=== PATIENT | female | born 1985 | race Caucasian/White ===

== ENCOUNTER → 2016-09-01 | Outpatient (CLI) | payer BC ==
--- NOTE | 2016-09-01 14:14 | US ---
Formerly [facility] Providers, Thank you for sending your patient, Johnny Allen, to us for a follow-up US to assess interval g rowth and position given concern for breech presentation. As you know, the patient is a 30 y.o. G1, P0 at 36 weeks and 3 days with an EDC of 09/26/16 based on LMP and 19 week US. Her has been uncomplicated to date. Genetic Screening: NIPT reassuring The patient denies any uterine contractions, vaginal bleeding, or loss of fluid. She reports excellen t movement. Today, she is without complaints. US FINDINGS: Number of fetuses: 1 Placental location: Anterior, no previa presentation: NICOLE BREECH Cervix: Suboptimal MVP: 5.0 cm Measurements: Biparietal diameter: 89 mm, 36 weeks 1 days Head circumference: 330 mm, 37 weeks 5 days Abdominal circumference: 325 mm, 36 weeks 4 days Femur length: 69 mm, 35 weeks 4 days Humerus length: 60 mm, 35 weeks 1 days Transcerebellar diameter: 53 mm, 37 weeks 4 days Cerebral Lateral Ventricle: 5 mm Cisterna Magna: Suboptimal Heart Rate: 124 bpm Average ultrasound age: 36 weeks 4 days Estimated weight: 2905 g weight percentile: 50% Anatomy: anatomy was previously assessed. Today the following structures were visualized and appeared n ormal: lateral ventricles, stomach, kidneys, and bladder. IMPRESSION: 1. Growth: The fetus measures appropriate for gestational age, measuring at a normal weight and perc entile. Visualization of the fetus today reveals no overt structural anomalies. There is evidence of normal amniotic fluid, and movement was seen during the examination. 2. Breech Presentation: Today, the fetus is in a nicole breech position. We discussed the option of ex ternal cephalic version at [facility]. We also discussed alternative methods including chiro practic care and acupuncture. Unfortunately, the patient has tried alternative methods without succes s over the past week. She has been scheduled for ECV on 09/07/2016 @ 0800 at [facility]. We briefly r eviewed the procedure and the risk of emergency delivery. We also discussed the need for IV placement during the procedure in the event that emergency surgery is required. Lastly, we discussed the option of Nitrous Oxide for pain and anxiety control during the procedure. All OB records and thi s report have been faxed to [facility]. Thank you again for sending this patient to see us today. Approximately 15 minutes were spent with th is patient today with 12 minutes of this time spent in direct face to face counseling regarding today 's US findings and our recommendations. Please contact me with any questions at . Nani Canales MD Maternal- Medicine
--- NOTE | 2016-09-01 18:17 | US ---
Ultrasound Obstetric limited Indication: Breech presentation. The estimated gestational age by LMP is 36 weeks and 3 days yieldi ng an EDC of September 26, 2016. Comparison: April 2016. Findings: Number: 1 Presentation: Breech Placental location: Anterior without previa Cervix: Suboptimal. Amniotic MVP: 5 cm Biometry: Biparietal diameter: 89.15 mm 36 weeks, 1 days Head circumference: 330.38 mm 37 weeks, 5 days Abdominal circumference: 325.48 mm 36 weeks, 4 days Femur length: 69.29 mm 35 weeks, 4 days Humerus length: 60.35 mm 35 weeks, 1 days Transcerebellar diameter: 52.75mm 37 weeks, 4 days HC/AC: 1.02 ( 0.9-1.11 ) FL/BPD: 78% FL/AC: 21% Average ultrasound age: 36 weeks, 4 days EDC based on today's average ultrasound age: September 25, 2016 Estimated weight is 2905 gms +/- 424 gms. The estimated weight is at the 50 % based on pr evious dating. ANATOMY : Previous evaluated. FHR 124 bpm. Today's limited anatomy demonstrates lateral ventricles, stomach, kidneys and bladder vi sualized. Impression: 1. Living harris in Breech presentation. 2. Size concordant with dates. 3. Please see Dr. Nani Canales's consult and recommendations.
== END ==
LOC: FIMAGING 11:40
PROVIDERS: ATTEND Advanced Practice Midwife
DX: O32.1XX1 Maternal care for breech presentation, fetus 1 (principal); Z3A.36 36 weeks gestation of pregnancy

== ENCOUNTER 2016-09-23 05:34 | Inpatient (IN) | payer BC ==
--- NOTE | 2016-09-22 08:36 | GHP ---
[f rep st] HISTORY AND PHYSICAL Amended report DATE OF ADMISSION: 09/23/2016 ADMITTING DIAGNOSES: 1. Intrauterine at 39 and 4 days 2. Malpresentation, breech. HISTORY OF PRESENT ILLNESS: Patient is a 31-year-old, 1, para 0, with LMP 12/18/2015, at 39 weeks and 4 days with an estimated due date 09/26/2016. This is consistent with an ultrasound done at 9 weeks. Patient presented to the office 09/10 and is a transfer from the Center. is uncomplicated per patient except when they found out baby was breech on ultrasound done 09/01/16 confirming breech with anterior placenta. Estimated weight 2905 g, 50th percentile. Maximum vertical pocket of 5 cm. The patient was scheduled for an external version on 09/07/16 and it was unsuccessful , so patient presents today to discuss a . Denies any leakage of fluid or vaginal bleeding. Denies any contractions. Good movement noted. Patient did have good care at the Center, and presented early in the first trimester. course mostly uncomplicated. She had UTI early in the first trimester, was treated with Macrobid with a negative test of cure. 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 Denies any cold sores or genital lesions. Patient did receive Tdap in the office today. Declines flu vaccine. GBS is positive. OBSTETRICAL HISTORY: Primiparous. PAST IRS AGENT HISTORY: Age of menarche 10. Cycles are regular every 28 days times 5 -7 days. Denies any history of abnormal Pap smears. Pap smear and chlamydia, gonorrhea cultures are negative in this . PAST MEDICAL HISTORY: HSV type 1. PAST SURGICAL HISTORY: Unremarkable. FAMILY HISTORY: Unremarkable. SOCIAL HISTORY: Patient is , lives with her Will. Denies any alcohol, tobacco or illicit drug use during the . ALLERGIES: No known drug allergies. MEDICATIONS: vitamins, Probiotics, magnesium. LABS: She is AB positive, antibody negative, rubella immune, HIV negative, RPR nonreactive, hepatitis B surface antigen negative. Genetic testing, Progenity is negative, Trio negative. GC and chlamydia cultures are negative. H and H are 14 and 41. TSH 2.6. GBS is positive. PHYSICAL EXAMINATION: VITAL SIGNS: On admission, vital signs stable. Patient is afebrile. GENERAL: Well-nourished well-developed 31-year-old female, alert and oriented x3. No apparent distress. HEART: Regular rate and rhythm. LUNGS : Clear to auscultation. ABDOMEN: Gravid. Nontender. Nondistended. Soft. Normoactive bowel sounds. PELVIC: Deferred. EXTREMITIES: Normal to inspection without calf tenderness or swelling. ASSESSMENT: This is a 31-year-old, 1, para 0, at 39 and 4/7 weeks with an RIA 09/26/2016, presenting as a transfer of care from the Center with malpresentation, breech. PLAN: 1. Surgical consents were obtained in the office. Risks, benefits and alternatives were reviewed with the patient including but not limited to, bleeding, infection, damage to surrounding organs. Pt understands all risks and wants to proceed with surgery, . 2. Will order on-call antibiotics prior to the incision. 3. Patient requests ultrasound to be done prior to the to confirm breech presentation. /[id number]/MODL Add acc#, 09/23/16, domitila PAREDES
[2016-09-23] MEDS ORDERED: CITRIC ACID/SODIUM CITRATE 30 ML UDCUP PO ONE (05:54)
[2016-09-23] MEDS ORDERED: LR 500 ML IV ONE (05:54)
[2016-09-23] MEDS ORDERED: ceFAZolin 2 GM/DEXTROSE 100 ML IV ONE (05:54)
[2016-09-23] MEDS ORDERED: LR 1,000 ML IV SCH (06:00)
[2016-09-23 06:54] LABS: % IMMATURE GRANULYOCYTES 0.3 % (0.0-1.1); ABSOLUTE IMMATURE GRANULOCYTES 0.03 10^3/uL (0.00-0.10); ADD DIFF? NO; ADD MORPH? NO; ADD SCAN? NO; ATYPICAL LYMPHOCYTE FLAG 0 (0-99); FRAGMENT RBC FLAG 0 (0-99); HEMATOCRIT 43.5 % (38.0-47.0); HEMOGLOBIN 15.2 g/dL (12.6-16.3); LEFT SHIFT FLG 0 (0-99); LIPEMIA HEMOLYSIS FLAG 90 (0-99); MEAN CELL HEMOGLOBIN 29.1 pg (27.9-34.1); MEAN CELL HEMOGLOBIN CONCENTR. 34.9 g/dL (32.4-36.7); MEAN CELL VOLUME 83.3 fL (81.5-99.8); MEAN PLATELET VOLUME 9.6 fL (8.7-11.7); PLATELET CLUMPS FLAG 0 (0-99); PLATELET COUNT 280 10^3/uL (150-400); RED BLOOD CELL COUNT 5.22 10^6/uL (4.18-5.33); RED CELL DISTRIBUTION WIDTH 12.4 % (11.5-15.2)
[2016-09-23] MEDS ORDERED: fentaNYL 100 MCG/2 ML INJ ONE (06:58)
[2016-09-23] MEDS ORDERED: morphINE PF 5 MG/10 ML INJ ONE (06:59)
[2016-09-23] MEDS ORDERED: fentaNYL 100 MCG/2 ML INJ IVP PRN (07:31)
[2016-09-23] MEDS ORDERED: PHENYLEPHRINE HCL 100 MCG/ML SYR IVP PRN (07:31)
[2016-09-23] MEDS ORDERED: NALOXONE HCL 0.4 MG/ML INJ IVP PRN (07:31)
[2016-09-23] MEDS ORDERED: METOCLOPRAMIDE 10 MG/2 ML VIAL IVP PRN (07:31)
[2016-09-23] MEDS ORDERED: MEPERIDINE 25 MG/ML SYR IVP PRN (07:31)
[2016-09-23] MEDS ORDERED: ONDANSETRON 4 MG/2 ML VIAL IVP PRN (07:31)
[2016-09-23] MEDS ORDERED: PHENYLEPHRINE HCL 100 MCG/ML SYR ONE (07:45)
[2016-09-23] MEDS ORDERED: OXYTOCIN 100 UNITS/10 ML VIAL ONE (08:06)
[2016-09-23] MEDS ORDERED: MAGNESIUM HYDROXIDE 30 ML UDCUP PO PRN (08:40)
[2016-09-23] MEDS ORDERED: BISACODYL 10 MG SUPP PR PRN (08:40)
[2016-09-23] MEDS ORDERED: LACTULOSE 20 GM/30 ML UDCUP PO PRN (08:40)
[2016-09-23] MEDS ORDERED: POLYETHYLENE GLYCOL 3350 17 GM PKT PO PRN (08:40)
--- NOTE | 2016-09-23 08:46 | OBPROC ---
- Delivery Pre-op Diagnoses: Malpresentation - breech Post-op Diagnoses: Malpresentation - nicole breech Procedure: Primary Surgeon: Alison Velez Transit Operations Supervisor: Stephanie Dang Anesthesiologist: Kari Corey Rehabilitation Aide/FINISH OPENER: Leticia Mallory Anesthesia: Spinal Complications: None Findings: Grossly normal appearing uterus, tubes and ovaries b/l. IV Fluid (ml): 2,500 EBL: 800 UO - 300 cc clear urine - Info Infant A Delivery Date: 09/23/16 Delivery Time: 08:05 Sex of Infant: Female Score (1 Min): 9 Score (5 Min): 9
[2016-09-23] MEDS: KETOROLAC 30 MG/1 ML SDV IVP SCH ×4 (11:19→23:14)
--- NOTE | 2016-09-23 12:08 | GOP ---
[f rep st] OPERATIVE REPORT DATE OF OPERATION: 09/23/2016 SURGEON: Alison Velez DO SPECIAL EDUCATION [employer] TEACHER: Stephanie Dang DO ANESTHESIA: Spinal. PREOPERATIVE DIAGNOSIS: 1. Intrauterine at 39 weeks and 4 days. 2. Malpresentation, breech. POSTOPERATIVE DIAGNOSIS: 1. Intrauterine at 39 weeks and 4 days. 2. Malpresentation, breech. PROCEDURE PERFORMED: Primary low transverse section. FINDINGS: Grossly normal-appearing uterus, tubes and ovaries bilaterally. SPECIMENS: None. ESTIMATED BLOOD LOSS: 800 cc. COMPLICATIONS: None. IV FLUIDS: 2500 cc LR. URINE OUTPUT: 300 cc of clear urine at the end of the procedure. INDICATIONS: Patient is a 31-year-old, 1, para 0, at 39 weeks and 4 days who presents as a transfer of care from the [facility] with failed version at 38 weeks and malpresentation, breech. DESCRIPTION OF PROCEDURE: The patient was taken to the operating room where spinal anesthesia was obtained. The patient was prepped and draped in the usual sterile fashion and placed in the supine position with a tilt. A skin incision was then made with a knife and extended to the fascia with the Bovie. The fascia was then nicked and extended bilaterally with Del Valle scissors. The fascia was then dissected off the rectus muscle bluntly and in the midline. Peritoneum was elevated with hemostats, entered bluntly and extended bilaterally. The bladder blade was placed. The visceral peritoneum was then entered with the Metzenbaum scissors. Bladder flap created using both sharp and blunt dissection. Bladder blade was advanced. The uterus was incised with the knife in a horizontal fashion. Lower uterine segment extended anterior and posteriorly. The baby was then delivered in the nicole breech presentation without difficulty. Delayed cord clamping occurred. The cord was then clamped and ligated. Baby was then handed off to the nurse practitioner. It was a baby girl. Apgars were 9 and 9. The placenta was then delivered spontaneously intact. Uterus was unable to be exteriorized. The cavity was cleaned with moist sponges. The uterine incision was then closed with a running stitch of 0 Vicryl. Hemostasis was noted. A 2nd imbricating layer was then closed with 0 Vicryl stitch. Again hemostasis was noted. The gutters were then cleansed of free blood and clots. The ovaries and tubes were visualized and appeared grossly normal appearing. The incision was visualized again and there was hemostasis noted. The rectus muscles were then approximated using 2-0 Vicryl. The fascia was then closed with 0 Vicryl running suture. Hemostasis was noted. The skin incision was then closed using a 4-0 Vicryl on a Darwin needle. Patient tolerated the procedure well. No complications. Sponge, lap and instrument counts were correct x2. The patient did receive 2 g of Ancef prior to the incision. The patient was then taken out of supine position and taken to the recovery room in stable condition. /[id number]/MODL MTDD
[2016-09-23] MEDS: DOCUSATE SODIUM 100 MG CAP PO PRN (23:14)
[2016-09-24] MEDS: HYDROCODONE/APAP 5/325 TAB PO PRN ×5 (03:45→21:32)
[2016-09-24] MEDS: IBUPROFEN 600 MG TAB PO PRN ×3 (05:54→19:09)
[2016-09-24] MEDS: SENNOSIDES/DOCUSATE SODIUM TAB PO SCH ×4 (07:08→23:13)
--- NOTE | 2016-09-24 09:57 | OBPROG ---
OBG Progress Note Assessment/Plan: Assessment: s/p PCS secondary to breech POD # 1 - pt is stable Plan: Continue routine pp care Dressing to be removed this am Pt may shower Encourage ambulation and IS Plan for d/c home in 48 hrs 09/24/16 09:54 Subjective: Pt seen and examined. Doing well, no complaints. Pain is well controlled. She is OOB, maryam diet, voiding, no flatus yet. Denies any f/c/n/v/CP or SOB. Minimal lochia. Some difficulty with and baby girl latching. Objective: 09/23/16 06:15 Patient ABO/Rh AB POSITIVE 09/23/16 06:15 Temp Pulse Resp BP Pulse Ox 37.0 C 61 94 H 103/70 95 09/24/16 08:00 09/24/16 05:30 09/24/16 05:30 09/24/16 08:00 09/24/16 08:00 Uterine Position/Fundal Height: Umbilicus -1 Uterine Tone: Firm - Physical Exam General Appearance: WD/WN, alert, no apparent distress Respiratory: lungs clear, normal breath sounds Cardiac/Chest: regular rate, rhythm Abdomen: normal bowel sounds, soft, flatus (none yet), incision (C/D/I), dressing (intact, dry) Genitourinary: lochia (minimal) Extremities: non-tender, normal inspection Neuro/Psych: alert, normal mood/affect, oriented x 3 ICD10 Worksheet Patient Problems: Problems Problem Status Diagnosed Breech extraction, delivered Acute Status post primary low transverse section Acute - ICD10 Problem Qualifiers (1) Status post primary low transverse section (2) Breech extraction, delivered
--- NOTE | 2016-09-24 16:57 | SOAPPROG ---
SOAP Progress Note Assessment/Plan: Assessment: POD #1 s/p C/S for breech presentation performed under SAB. Intrathecal morphine was given for extended POPC. Pt. doing very well. Plan: Continue current medical mgmt. 09/24/16 16:55 Subjective: Pt. denies N/V, pruritus, back pain, numbness/weakness, urinary retention. Objective: Vital Signs Temp Pulse Resp BP Pulse Ox 37.4 C 79 16 98/57 L 93 09/24/16 15:00 09/24/16 15:00 09/24/16 15:00 09/24/16 15:00 09/24/16 15:00 Laboratory Results 09/23/16 06:15 09/23/16 09/24/16 09/25/16 05:59 05:59 05:59 Intake Total 2500 Output Total 4200 Balance -1700 Physical Exam - Physical Exam General Appearance: WD/WN, alert, no apparent distress Neuro/Psych: no motor/sensory deficits, alert, normal mood/affect ICD10 Worksheet Patient Problems: Problems Problem Status Diagnosed Breech extraction, delivered Acute Status post primary low transverse section Acute
[2016-09-25] MEDS: IBUPROFEN 600 MG TAB PO PRN ×4 (01:26→19:58)
[2016-09-25] MEDS: HYDROCODONE/APAP 5/325 TAB PO PRN ×6 (01:27→23:53)
[2016-09-25] MEDS: SENNOSIDES/DOCUSATE SODIUM TAB PO SCH ×2 (08:11→19:57)
--- NOTE | 2016-09-25 14:14 | SOAPPROG ---
SOAP Progress Note Assessment/Plan: Assessment: POD 2 s/p primary C/S for breech Plan: routine care 09/25/16 14:11 Subjective: Pt doing great. Pain under good control with [place]/ibu. Baby is latching well and has good colostrum. Bld has decreased. urinating fine. Amb well. Mild tape rxn but not painful - no blisters. Objective: Vital Signs Temp Pulse Resp BP Pulse Ox 36.9 C 84 16 103/68 94 09/25/16 08:05 09/25/16 08:05 09/25/16 08:05 09/25/16 08:05 09/25/16 08:05 Laboratory Results 09/23/16 06:15 09/24/16 09/25/16 09/26/16 05:59 05:59 05:59 Intake Total 2500 2200 Output Total 4200 1250 Balance -1700 950 Physical Exam - Physical Exam General Appearance: WD/WN Abdomen: non-tender (approp post op tenderness), soft, other (incision CDI, FF at umb ) Pelvic Exam: vaginal bleeding (normal lochia) Extremities: non-tender, pedal edema (mild) Neuro/Psych: normal mood/affect ICD10 Worksheet Patient Problems: Problems Problem Status Diagnosed Breech extraction, delivered Acute Status post primary low transverse section Acute
[2016-09-25] MEDS: DOCUSATE SODIUM 100 MG CAP PO PRN (19:57)
[2016-09-26] MEDS: IBUPROFEN 600 MG TAB PO PRN ×2 (02:04→09:03)
[2016-09-26] MEDS: HYDROCODONE/APAP 5/325 TAB PO PRN ×3 (04:07→13:55)
[2016-09-26 08:08] VITALS: BP 118/83; PULSE 72; RESP 17; TEMP 97.4; O2SAT 95
[2016-09-26] MEDS: SENNOSIDES/DOCUSATE SODIUM TAB PO SCH (09:02)
--- NOTE | 2016-09-26 11:46 | SOAPPROG ---
SOAP Progress Note Assessment/Plan: Assessment: POD 3 s/p primary C/S for breech Plan: routine care, pt desires d/c home 09/25/16 14:11 09/26/16 11:43 Subjective: Pt doing well. Desires D/C. Pain well controlled with [place]/ibu. Baby BF well. Bld is light. urinating fine. Amb well. Objective: Vital Signs Temp Pulse Resp BP Pulse Ox 36.3 C 72 17 118/83 H 95 09/26/16 07:40 09/26/16 07:40 09/26/16 07:40 09/26/16 07:40 09/26/16 07:40 Laboratory Results 09/23/16 06:15 09/25/16 09/26/16 09/27/16 05:59 05:59 05:59 Intake Total 2200 Output Total 1250 Balance 950 Physical Exam - Physical Exam General Appearance: WD/WN Abdomen: non-tender (approp post op tenderness), soft, other (incision CDI, FF at umb -1) Pelvic Exam: vaginal bleeding (normal lochia) Extremities: non-tender, pedal edema Neuro/Psych: normal mood/affect ICD10 Worksheet Patient Problems: Problems Problem Status Diagnosed Breech extraction, delivered Acute Status post primary low transverse section Acute
== END 2016-09-26 14:30 | disposition home or self-care (01) | DRG 766 ==
LOC: FLD 05:34 → FOB 10:50
PROVIDERS: ADMIT Obstetrics & Gynecology; ATTEND Obstetrics & Gynecology
PROC: 10D00Z1 Extraction of Products of Conception, Low, Open Approach (ICD-10-PCS; principal; 2016-09-23)
DX: O32.1XX0 Maternal care for breech presentation, not applicable or unspecified (principal); O99.824 Streptococcus B carrier state complicating childbirth; Z3A.39 39 weeks gestation of pregnancy; Z37.0 Single live birth
CPT/HCPCS: J0690; J1885; J2274; J2370; J2590; J3010

== ENCOUNTER → 2017-05-21 | Outpatient (CLI) | payer BC | LOC: FIMAGING 13:43 | PROVIDERS: ATTEND Family Medicine | DX: N93.9 Abnormal uterine and vaginal bleeding, unspecified (principal) ==

== ENCOUNTER → 2018-09-27 | Outpatient (CLI) | payer BC | LOC: FIMAGING 11:35 | PROVIDERS: ATTEND Advanced Practice Midwife | DX: O09.522 Supervision of elderly multigravida, second trimester (principal); O34.219 Maternal care for unspecified type scar from previous cesarean delivery; Z3A.19 19 weeks gestation of pregnancy ==